=== PATIENT | female | born 1985 | race Caucasian/White ===

== ENCOUNTER 2024-03-10 13:54 | Emergency (ER) | payer BC ==
[~2024-03-10] VITALS: Ht 160 cm; Wt 75.3 kg
[2024-03-10 13:58] VITALS: BP_SYST 121; PULSE 116; RESP 18; TEMP 97.9; O2SAT 96
[2024-03-10 14:45] LABS: BASOPHILS % (AUTO) 0.6 % (0.0-2.0); EOSINOPHILS # (AUTO) 0.1 K/uL (0.0-0.4); HEMATOCRIT 31.4 % (36-48); HEMOGLOBIN 10.7 g/dL (12.0-16.0); LYMPHOCYTES # (AUTO) 1.2 K/uL (1.0-5.5); LYMPHOCYTES % (AUTO) 17.5 % (20.5-51.5); MEAN CORPUSCULAR HEMOGLOBIN 35 pg (27-31); MEAN CORPUSCULAR HGB CONC 34 % (32-36); MEAN CORPUSCULAR VOLUME 102 fL (79.0-98.0); MONOCYTES # (AUTO) 0.3 K/uL (0.0-1.0); NEUTROPHILS # (AUTO) 5.3 K/uL (1.8-7.7); NEUTROPHILS % (AUTO) 75.9 % (40.0-70.0); PLATELET COUNT (AUTO) 117 K/uL (130-430); RED BLOOD CELL COUNT(AUTO) 3.09 MIL/uL (4.2-6.2); RED CELL DISTRIBUTION WIDTH 15.1 % (9.0-15.0)
[2024-03-10 14:59] LABS: ANION GAP 9 (5-15); CALCIUM 8.4 mg/dL (8.4-11.0); CARBON DIOXIDE 24 mmol/L (23-29); CHLORIDE 100 mmol/L (98-107); GFR AFRICAN AMERICAN 161 mL/min (>90); GFR NON AFRICAN-AMERICAN 133 mL/min (>90); GLUCOSE 99 mg/dL (74-106); POTASSIUM 3.4 mmol/L (3.5-5.1); SODIUM SERUM 133 mmol/L (136-145); UREA NITROGEN, BLOOD 2 mg/dL (8-21)
[2024-03-10 15:29] LABS: CREATININE 0.55 mg/dL (0.55-1.30)
[2024-03-10] MEDS ORDERED: iohexoL 350 mgI/mL, 100 ML INFUS..BTL IV ONE (17:57)
[2024-03-10] MEDS: NITROGLYCERIN 0.4 MG TAB.SUBL SL ONE (18:46)
[2024-03-10] MEDS: ONDANSETRON HCL 4 MG/2 ML VIAL IVP ONE (20:37)
[2024-03-10] MEDS: KETOROLAC TROMETHAMINE 30 MG VIAL IVP ONE (21:30)
[2024-03-10 22:30] LABS: ALBUMIN 2.4 g/dL (3.4-4.8); BILIRUBIN,DIRECT 11.3 mg/dL (0.0-0.3); TOTAL BILIRUBIN 14.9 mg/dL (0.0-1.0); TOTAL PROTEIN, SERUM 7.1 g/dL (6.4-8.3)
[2024-03-10 23:35] VITALS: BP_SYST 145; PULSE 107; RESP 20; TEMP 97.1; O2SAT 97
== END 2024-03-10 23:35 | disposition home or self-care (01) ==
LOC: SED 13:54
DX: R07.89 Other chest pain (principal); R00.0 Tachycardia, unspecified; K70.9 Alcoholic liver disease, unspecified; E80.6 Other disorders of bilirubin metabolism
CPT/HCPCS: 99285; 96374; 71275; 71045; 96375; 80076; 80048; 82140; 83880; 85025; 85379; 84484; 36415; 93005; 81025; Q9967; J1885; J2405

== ENCOUNTER 2024-03-23 18:53 | Emergency (ER) | payer BC ==
[~2024-03-23] VITALS: Ht 160 cm; Wt 73.5 kg
[2024-03-23 19:10] VITALS: BP_SYST 160; PULSE 115; RESP 16; TEMP 98.2; O2SAT 98
[2024-03-23] MEDS: NACL 0.9% 1,000 ML IV ONE (19:46)
[2024-03-23] MEDS: ONDANSETRON HCL 4 MG/2 ML VIAL IVP ONE (19:46)
[2024-03-23 20:03] LABS: BASOPHILS # (AUTO) 0.1 K/uL (0.0-0.2); BASOPHILS % (AUTO) 1.6 % (0.0-2.0); EOSINOPHILS % (AUTO) 0.8 % (0.0-4.0); HEMATOCRIT 29.4 % (36-48); HEMOGLOBIN 10.4 g/dL (12.0-16.0); LYMPHOCYTES # (AUTO) 0.9 K/uL (1.0-5.5); LYMPHOCYTES % (AUTO) 14.5 % (20.5-51.5); MEAN CORPUSCULAR HEMOGLOBIN 35 pg (27-31); MEAN CORPUSCULAR HGB CONC 35 % (32-36); MEAN CORPUSCULAR VOLUME 100 fL (79.0-98.0); MONOCYTES # (AUTO) 0.4 K/uL (0.0-1.0); MONOCYTES % (AUTO) 6.1 % (1.7-9.3); NEUTROPHILS # (AUTO) 4.7 K/uL (1.8-7.7); PLATELET COUNT (AUTO) 92 K/uL (130-430); RED BLOOD CELL COUNT(AUTO) 2.94 MIL/uL (4.2-6.2); RED CELL DISTRIBUTION WIDTH 16.4 % (9.0-15.0); WHITE BLOOD COUNT (AUTO) 6.1 K/uL (4.8-10.8)
[2024-03-23] MEDS: PROCHLORPERAZINE EDISYLATE 10 MG/2 ML VIAL IVP ONE (20:13)
[2024-03-23 20:25] LABS: INR 1.2 (0.8-1.2); PROTHROMBIN TIME 12.8 SECS (9.5-12.5)
[2024-03-23] MEDS: MORPHINE 2 MG/ML INJ. SYRINGE IVP ONE (20:27)
[2024-03-23] MEDS: FAMOTIDINE PF 20 MG/2 ML VIAL IVP ONE (20:27)
[2024-03-23] MEDS ORDERED: FAMOTIDINE PF 20 MG/2 ML VIAL ONE (20:29)
[2024-03-23 20:38] LABS: ALBUMIN 2.5 g/dL (3.4-4.8); BILIRUBIN,DIRECT 10.7 mg/dL (0.0-0.3); CALCIUM 8.7 mg/dL (8.4-11.0); CREATININE 0.54 mg/dL (0.55-1.30); POTASSIUM 4.1 mmol/L (3.5-5.1); TOTAL BILIRUBIN 14.2 mg/dL (0.0-1.0); TOTAL PROTEIN, SERUM 7.6 g/dL (6.4-8.3)
[2024-03-23] MEDS ORDERED: ONDA-8 TL (20:50)
[2024-03-23] MEDS ORDERED: CHLO25CA11 PO (20:50)
[2024-03-23 21:00] VITALS: BP_SYST 120; PULSE 104; RESP 19; TEMP 97.7; O2SAT 95
== END 2024-03-23 21:00 | disposition home or self-care (01) ==
LOC: SED 18:53
DX: K29.20 Alcoholic gastritis without bleeding (principal); K70.9 Alcoholic liver disease, unspecified; F10.10 Alcohol abuse, uncomplicated; Y90.9 Presence of alcohol in blood, level not specified; Z79.899 Other long term (current) drug therapy; Z79.2 Long term (current) use of antibiotics
CPT/HCPCS: 99284; 96374; 96375; 96361; 80076; 80048; 83690; 85025; 85610; 85730; 36415; J3490; J2405; J0780; J2270; J7030